=== PATIENT | male | born 1960 | race Caucasian/White ===

== ENCOUNTER 2016-10-23 08:10 | Day surgery (SDC) | payer OTHER ==
[~2016-10-23] VITALS: Ht 170.2 cm; Wt 65.9 kg
--- NOTE | 2016-10-23 07:19 | PCM.HPANE ---
Patient Data Surgeon Admitting Provider: Attending Provider:Jay Monson MD Primary Care Physician:Pat Daniels MD Other Provider:Rukhsana Montanoingham Anesthesia Reason for Visit Colon Cancer Screening Ht/WT & BMI Body Mass Index Allergies Coded Allergies: bee pollen (Verified Allergy, Severe, BREATHING PROBLEMS, 10/22/16) codeine (Verified Allergy, Unknown, SWELLING,ITCHING, 10/22/16) Uncoded Allergies: BEE VENOM (Allergy, Severe, 10/23/16) Past Anesthesia History Anesthesia History: Denies:: Anesthesia Reactions Diabetes History Hx Diabetes?: No Medications Blood Thinner: Xarelto Hypertension Medication: Yes Home Meds Incl Beta Maki: Yes Date Beta Maki Taken: Oct 23, 2016 Time Beta Maki Taken: 05:30 Reported Medications Metoprolol Succinate ER 50 Mg Tab.er.24h50 Mg PO DAILY Ref 0 10/22/16 Diltiazem ER 120 Mg Cap.er.23u659 Mg PO DAILY Ref 0 10/22/16 Aspirin 81 Mg Gcdkvk20 Mg PO DAILY Ref 0 10/22/16 Discontinued Reported Medications Rivaroxaban (Xarelto)20 Mg Uiyqmt01 Mg PO 10/22/16 History History of ENT Problems?: No Cardiovascular History: Positive for:: Atrial Fibrillation Hx of Respiratory Problem?: No Stop/Bang DEB Risk Assessment: Low Risk, <3 Yes Risk Assessment Category Category 1A: Patient has history of documented sleep apnea, and HAS NOT received any narcotic, sedative or anesthesia administration during this stay. Category 1B: Patient has history of documented sleep apnea, and HAS received any narcotic , sedative or anesthesia administration during this stay Category 2: Patient has SUSPECTED Obstructive Sleep Apnea, and HAS received any narcotic , sedative or anesthesia administration during this stay. Category 3: Patient has SUSPECTED Obstructive Sleep Apnea and HAS NOT received narcotic, sedative or anesthesia administration during this stay. Category 4: Outpatient in Procedural Areas with known sleep apnea or who screen positive for High Risk via the STOP/BANG questionnaire. Exam Exam General Appearance: Alert, Oriented X3, Cooperative, No Acute Distress HEENT/AIRWAY: MP 2, Other (poor dentition, teeth out) Lungs: Normal Air Movement Heart: Exam Unremarkable Plan Impression Patient chart reviewed, patient interviewed and anesthestic plan with risks, benefits, and alternatives discussed, and informed consent obtained. ASA Physical Status: ASA2 Mod Systemic Disease Anesthetic Plan: MAC Bene/Risks/Altern/Consents: Yes HP Complete Prior to Induction: Yes Rajendra Pa MD Oct 23, 2016 07:19
[~2016-10-23 08:10] MED LIST: ASPI-973 PO; DILT-17 PO; Lactated Ringer's 1,000 ML IV ONE; METO-272 PO; RIVA20TA PO
[2016-10-23] MEDS ORDERED: fentaNYL-PF 50 mCg/mL 2 mL Inj ONE (08:11)
[2016-10-23] MEDS ORDERED: Propofol 10,000 mCg/mL 20 mL Inj ONE (08:11)
[2016-10-23 08:30] VITALS: BP 124/82; PULSE 74; RESP 12; O2SAT 95
[2016-10-23] MEDS ORDERED: Lactated Ringer's 1,000 ML IV SCH (09:29)
[2016-10-23] MEDS ORDERED: Ondansetron 2 mg/mL 2 mL Inj IVPUSH PRN (09:30)
[2016-10-23] MEDS ORDERED: MetoCLOpramide 5 mg/mL 2 mL Inj IVPUSH PRN (09:30)
[2016-10-23 09:53] VITALS: BP 100/65; PULSE 71; RESP 14; O2SAT 97
--- NOTE | 2016-10-23 10:01 | PCM.ANEP1 ---
Post Anesthesia Phase 1 PACU Phase 1 Assessment Vital Signs see anesthesia record Vital Signs Date Time Temp Pulse Resp B/P Pulse Ox O2 Delivery O2 Flow Rate FiO2 10/23/16 08:30 36.1 74 12 124/82 95 Room Air Anesthetic Administered: MAC Level of Alertness: Awake, talking WALLACE's with Equal Strength: Yes Pain: No Nausea or Vomiting: No Oxygen Delivery: Room Air Lungs: Normal Air Movement Dermatome Level: Full Sensation Rajendra Pa MD Oct 23, 2016 10:01
[2016-10-23 10:02] VITALS: BP 87/58; PULSE 71; RESP 14; O2SAT 98
--- NOTE | 2016-10-23 10:02 | PCM.ANEP2 ---
Post Anesthesia Evaluation ASA/CMS Post Anesthesia VS in Patient's Normal Range?: Yes Resp Stable; Airway Patent?: Yes CV Function & Hydration Stable: Yes Mental Status Recovered?: Yes Pain control Satisfactory?: Yes N/V Control Satisfactory?: Yes Rajendra Pa MD Oct 23, 2016 10:02
[2016-10-23 10:13] VITALS: BP 110/81; PULSE 63; RESP 16; O2SAT 97
--- NOTE | 2016-10-23 10:37 | ENDO ---
[address] [address] ENDOSCOPY PROCEDURE PATIENT: GEOVANNA GRAFF : 1960 MR#: [id number] ADMIT: 10/23/2016 JOB ID: [id number] DATE: 10/23/2016 PRIMARY PROVIDER: Pat Daniels PROCEDURE: Colonoscopy with hot and cold snare polypectomy. INDICATIONS: A 56-year-old male who reports for colon cancer screening. EQUIPMENT: PCA[employer]In Social H 180 AL. SEDATION: Monitored anesthesia as provided by Dr. Rajendra Pa. COMPLICATIONS: None identified. BOWEL PREPARATION: Excellent. PROCEDURAL INFORMATION: After the risks and benefits were explained, written and verbal informed consent was obtained. The patient was brought into the endoscopy suite and placed into the left lateral decubitus position. Sedation was achieved as above. A digital rectal examination was accomplished. No significant pathology appreciated. The scope was introduced into the rectum and advanced under direct visualization to the cecum as identified by the appendiceal orifice and ileocecal valve. The scope was slowly withdrawn to carefully examine the mucosa for any defects or lesions. Multiple direct views were made through the dentate line for exclusion of pathology. The colon was decompressed. The scope removed from the patient who tolerated the procedure well. FINDINGS: In the rectum there was a diminutive 4 mm polyp removed with cold snare and a slightly larger 5 mm polyp removed with hot snare. No other significant pathology was appreciated throughout. ENDOSCOPIC DIAGNOSES: Benign diminutive rectal polyps. RECOMMENDATIONS: 1. Await histopathology. 2. If adenomatous features are identified, then repeat colonoscopy five years. Otherwise, repeat 10 years, sooner p.r.n.
--- NOTE | 2016-10-24 11:01 | PATH ---
SURGICAL PATHOLOGY Attending Physician:Nick Flaherty CASE STATUS: Signed Out PATIENT NAME: GEOVANNA GRAFF PID: [id number] : 1960 DATE COLLECTED:10/23/2016 16:10 SPECIMEN: Rectum, Biopsy CLINICAL HISTORY: 1). RECTAL POLYP X 2 FINAL DIAGNOSIS: Rectal Polyps: Hyperplastic polyps (2). ICD10 D12.6 GROSS DESCRIPTION: The specimen is received in one formalin filled container labeled with the patient's name, sublabeled "rectal polyps" and consists of 2 portions of tissue which aggregate to 0.3 x 0.3 x 0.2 CM. The specimen is entirely submitted in one cassette. 10/23/2016 [facility] ICD-9 CODES: CPT CODES: 1: 16932 Electronically Signed Out Patrick Jacobson MD [facility], [place] [address] Technical component performed at [facility], [address] [place] [address] Ave[address], [place], [address]
== END 2016-10-23 23:59 | disposition home or self-care (01) ==
LOC: END 08:10
PROVIDERS: ATTEND Internal Medicine Gastroenterology
DX: Z12.11 Encounter for screening for malignant neoplasm of colon (principal); D12.8 Benign neoplasm of rectum; I10 Essential (primary) hypertension; I48.91 Unspecified atrial fibrillation; F17.210 Nicotine dependence, cigarettes, uncomplicated; Z79.82 Long term (current) use of aspirin; Z79.01 Long term (current) use of anticoagulants; Z72.89 Other problems related to lifestyle
CPT/HCPCS: 45385; 88305; J2250; J3010; J7120

== ENCOUNTER 2016-12-02 18:22 | Emergency (ER) | payer OTHER ==
[~2016-12-02] VITALS: Ht 170.2 cm; Wt 65.5 kg
[~2016-12-02 18:22] MED LIST changes: -Lactated Ringer's 1,000 ML IV ONE; -RIVA20TA PO
[2016-12-02 18:31] VITALS: BP 118/85; PULSE 75; RESP 16; O2SAT 99
--- NOTE | 2016-12-02 18:49 | ED.REPORT ---
HPI-Chest Pain 40 and Over Date of Service December 02, 2016 ED Provider: Lowell Smiley MD Patient is a 56 year old male with a hx of afib who presents to the ED complaining of irregular heart beats onset today. Associated symptoms include palpitations and a HR of 150. He denies chest pain, nausea, dizziness, SOB, or any other symptoms. He reports that he goes in and out of afib but has never been cardioverted. He took a double dose of his medications this afternoon with the onset of his symptoms. He takes 81 mg aspirin daily. Nursing Notes Stated Complaint: AFIB Chief Complaint: Dysrhythmia/Cardiac Nursing Notes Reviewed: Yes Allergies: Coded Allergies: bee pollen (Verified Allergy, Severe, BREATHING PROBLEMS, 10/22/16) codeine (Verified Allergy, Unknown, SWELLING,ITCHING, 10/22/16) Uncoded Allergies: BEE VENOM (Allergy, Severe, 10/23/16) Scheduled Aspirin (Aspirin) 81 Mg Tablet 81 MG PO DAILY Diltiazem ER (Diltiazem ER) 120 Mg Cap.er.24h 120 MG PO DAILY Metoprolol Succinate ER (Metoprolol Succinate ER) 50 Mg Tab.er.24h 50 MG PO DAILY General Time Seen by MD: 18:43 Chief Complaint Other (Palpitations ) Hx Obtained From: Patient Arrived By: Walk-in Sudden in Onset?: Yes Onset Occurred: 9 - 12 hours ago Symptom Duration: Since onset Risk Factors )( CAD Risk Stratification SmokingNo Diabetes mellitus, No Hyperlipidemia, No Hypertension Risk factors reviewed )( TAD Risk Stratification No Aortic valve disease, No Hypertension, No Risk factors reviewed )( PE Risk Stratification No Previous DVT, No Previous PE Risk factors reviewed Past Medical History Past Medical History Notes: Cardio Dr. Shaver Past Medical History Reports: Atrial fibrillation Past Surgical History Reports: Appendectomy Smoking History Current Every Day Smoker Social History Alcohol Use: "Social" Other Social History: Good social support, Ambulatory Status Independent Review of Systems Review of Systems Note: +HR 150 Respiratory: Denies: Shortness of breath Cardiovascular: Reports: Palpitations, Denies: Chest pain GI: Denies: Nausea Neurologic: Denies: Dizziness Complete sys rev & neg: except as marked. Physical Exam Initial Vital Signs Vital Signs (First) Date Time Temp Pulse Resp B/P Pulse Ox O2 Delivery O2 Flow Rate FiO2 12/02/16 18:31 37.2 75 16 118/85 99 Room Air Initial VS: Reviewed Head / Eyes: Atraumatic, Normocephalic Neck: Full range of motion Skin: Warm, Dry Neurologic: Alert, Oriented, Nonfocal Psychiatric: Mood/affect normal, Behavior normal, Normal thought content General/Constitutional: Awake, Alert, Well appearing, Well developed Respiratory / Chest: Breath sounds NL, Breath sounds = bilat, No respiratory distress Cardiovascular: No murmurs Heart Rate / Rhythm: Positive: Irreg irregular rhythm Abdomen: Soft, Non-tender Lower Extremity / Pelvis / MS: No edema Interpretation & Diagnostics Lab Results Interpretation Result Diagram: 12/02/165 12/02/165 Test 12/02/16 18:55 White Blood Count 13.4th/mm3 (3.8-10.1) Red Blood Count 5.05mil/mm3 (4.40-5.80) Hemoglobin 16.4g/dL (13.8-17.2) Hematocrit 48.3% (41.0-50.0) Mean Corpuscular Volume 95.6fL (81-100) Mean Corpuscular Hemoglobin 32.5pg (27.0-35.0) Mean Corpuscular Hemoglobin Concent 34.0% (32.0-37.0) Red Cell Distribution Width 14.3% (12.3-15.4) Platelet Count 280bil/L (150-400) Neutrophils (%) (Auto) 70.0% (40-74) Lymphocytes (%) (Auto) 20.2% (14-46) Monocytes (%) (Auto) 7.5% (4-12) Eosinophils (%) (Auto) 1.3% (0-5) Basophils (%) (Auto) 0.6% (0-3) Sodium Level 143mEq/L (134-144) Potassium Level 4.4mEq/L (3.5-5.2) Chloride Level 105mEq/L (97-108) Carbon Dioxide Level 21mmol/L (18-29) Blood Urea Nitrogen 15mg/dL (6-24) Creatinine 0.78mg/dL (0.76-1.27) Estimat Glomerular Filtration Rate 109mL/min (>59) Glucose Level 100mg/dL (60-99) Calcium Level 9.4mg/dL (8.5-10.1) Magnesium Level 2.2mg/dL (1.6-2.6) Total Bilirubin 0.3mg/dL (0.0-1.2) Aspartate Amino Transf (AST/SGOT) 28U/L (0-50) Alanine Aminotransferase (ALT/SGPT) 18U/L (0-44) Alkaline Phosphatase 63U/L (25-150) Troponin T < 0.010ug/L (0.0-0.011) Total Protein 7.1g/dL (6.4-8.4) Albumin 4.1g/dL (3.4-5.0) ECG Interpretation ECG Interpretation: Afib with rate [address] abnormalities T wave inversions in V1 no prior Time: 18:51 Interpreted by: ED physician Re-Eval/Medical Decision Med Decision/Clinical Course 56-year-old male history of paroxysmal atrial fibrillation on aspirin, diltiazem presenting feeling like he has been in atrial fibrillation since yesterday. Was in atrial fibrillation with normal rate on arrival and converted to sinus rhythm while he was here. His labs are stable. He had no chest pain or shortness of breath. His troponins are negative. Patient is discharged home with plans to follow up with his keeper head this week. Return precautions given. Time of Eval: 20:18 Re-Evaluation/Progress Note: Discussed plan for discharge. Patient understands and agrees with plan. All questions addressed at this time. Counseled Regarding: Diagnosis, Lab results, Need for follow-up, When/why to return to ED Discharge & Departure Primary Impression: Atrial fibrillation Atrial fibrillation type: chronic Qualified Code: I48.2 - Chronic atrial fibrillation Additional Impression: Palpitation Disposition: Home Discharge Condition All VS Reviewed: Yes Condition: Improved Patient Instructions: Atrial Fibrillation (GEN) Additional Instructions: Thank you for entrusting us with your care. Your examination, labs, and EKG were reassuring. It does not appear that there is a dangerous cause for your atrial fibrillation at this time. Return to the emergency department if you are experiencing atrial fibrillation AND lightheadedness, chest pain, difficulty breathing, a persistent heart rate > 110, or any other new or worsening symptoms. Referrals: Pat Daniels MD (PCP) Scribe Attestation Portions of this note were transcribed by Nicholas Herrera. I, Dr. Smiley personally performed the history, physical exam and medical decision-making; I reviewed and confirmed the accuracy of the information in the transcribed note. Signed by: Nicholas Herrera 12/02/162018 copies to: Pat Daniels MD, Ben M MD December 02, 2016 18:49 NICHOLAS HERRERA December 02, 2016 18:55
[2016-12-02 19:04] LABS: BASOPHILS % (AUTO) 0.6 % (0-3); EOSINOPHILS % (AUTO) 1.3 % (0-5); MONOCYTES % (AUTO) 7.5 % (4-12); Mean Corpuscular Hemoglobin 32.5 pg (27.0-35.0); Mean Corpuscular Volume 95.6 fL (81-100); Platelet Count 280 bil/L (150-400)
[2016-12-02 19:26] LABS: TROPONIN T < 0.010 ug/L (0.0-0.011)
[2016-12-02 19:37] LABS: Magnesium 2.2 mg/dL (1.6-2.6)
[2016-12-02 21:03] VITALS: BP 115/71; PULSE 85; RESP 25; O2SAT 93
== END 2016-12-02 21:05 | disposition home or self-care (01) ==
LOC: SED 18:42
DX: I48.2 Chronic atrial fibrillation (principal); F17.200 Nicotine dependence, unspecified, uncomplicated; Z79.82 Long term (current) use of aspirin; Z88.5 Allergy status to narcotic agent

== ENCOUNTER 2016-12-03 00:03 | Emergency (ER) | payer OTHER ==
[~2016-12-03] VITALS: Ht 170.2 cm; Wt 65.5 kg
[2016-12-03 00:25] VITALS: BP 134/68; PULSE 84; RESP 21; O2SAT 97
[2016-12-03 00:48] VITALS: BP 105/84; PULSE 72; RESP 18; O2SAT 98
--- NOTE | 2016-12-03 00:57 | ED.REPORT ---
HPI-General Illness Date of Service December 03, 2016 ED Provider: Francisco Elias MD Patient is a 56 year old male who was seen earlier today in the ED due to atrial fibrillation and converted on his own so he was discharged. The patient presents again to the ED via EMS due to atrial fibrillation. Associated symptoms include nausea. He denied chest pain or shortness of breath. Per the EMS, the patient's rate was 150 but did not receive any medications prior to arrival. The patient has had 10 episodes of atrial fibrillation since March of last year. He was previously on Coumadin or Eloquis but is not sure why his doctor told him to stop taking it. Patient has never been cardioverted before. Nursing Notes Stated Complaint: ATRIAL FIBRILLATION Chief Complaint: Dysrhythmia/Cardiac Nursing Notes Reviewed: Yes Allergies: Coded Allergies: bee pollen (Verified Allergy, Severe, BREATHING PROBLEMS, 10/22/16) codeine (Verified Allergy, Unknown, SWELLING,ITCHING, 10/22/16) Uncoded Allergies: BEE VENOM (Allergy, Severe, 10/23/16) Scheduled Aspirin (Aspirin) 81 Mg Tablet 81 MG PO DAILY Diltiazem ER (Diltiazem ER) 120 Mg Cap.er.24h 120 MG PO DAILY Metoprolol Succinate ER (Metoprolol Succinate ER) 50 Mg Tab.er.24h 50 MG PO DAILY General Time Seen by MD: 00:24 Chief Complaint Other (atrial fibrillation) Hx Obtained From: Patient Arrived By: Ambulance Sudden in Onset?: Yes Onset Occurred: Just prior to arrival Symptom Duration: Intermittent Location: : Chest Associated with: Reports: Nausea, Denies: Chest pain, Shortness of breath Recent Healthcare: No recent hospitalization, Recent doctor visit Similar Sx Previous: Yes Past Medical History Past Medical History Notes: Cardio Dr. Shaver Past Medical History Reports: Atrial fibrillation Past Surgical History Reports: Appendectomy Smoking History Current Every Day Smoker Social History Alcohol Use: "Social" Other Social History: Good social support, Ambulatory Status Independent Review of Systems atrial fibrillation Full Review of Systems Respiratory: Denies: Non-productive cough, Shortness of breath Cardiovascular: Denies: Chest pain GI: Reports: Nausea Complete sys rev & neg: except as marked. Physical Exam Vital Signs Vital Signs Date Time Temp Pulse Resp B/P Pulse Ox O2 Delivery O2 Flow Rate FiO2 12/03/16 03:46 36.6 65 18 98/69 94 Room Air 12/03/16 02:19 63 18 97/63 98 Room Air 12/03/16 01:08 75 14 114/78 98 Room Air 12/03/16 00:48 72 18 105/84 98 Room Air 12/03/16 00:25 36.6 84 21 134/68 97 Room Air Initial VS: Reviewed, Vital signs abnormal General/Constitutional: Awake, Alert, No acute distress Head / Eyes: Atraumatic, Normocephalic, PERRL, EOMI Neck: Atraumatic, Supple, Full range of motion, No JVD Respiratory / Chest: Atraumatic, Breath sounds NL, Breath sounds = bilat, No respiratory distress Heart Rate / Rhythm: Positive: Irreg irregular rhythm Skin: Atraumatic, Color NL, No rash, Warm, Dry Neurologic: Oriented X3, Speech NL, No motor deficits, No sensory deficits Psychiatric: Affect NL, Mood NL Interpretation & Diagnostics Lab Results Interpretation Result Diagram: 12/03/16 0129 12/03/16 0129 Test 12/03/16 01:29 White Blood Count 11.6th/mm3 (3.8-10.1) Red Blood Count 4.91mil/mm3 (4.40-5.80) Hemoglobin 15.9g/dL (13.8-17.2) Hematocrit 46.7% (41.0-50.0) Mean Corpuscular Volume 95.1fL (81-100) Mean Corpuscular Hemoglobin 32.4pg (27.0-35.0) Mean Corpuscular Hemoglobin Concent 34.0% (32.0-37.0) Red Cell Distribution Width 14.0% (12.3-15.4) Platelet Count 251bil/L (150-400) Neutrophils (%) (Auto) 70.5% (40-74) Lymphocytes (%) (Auto) 20.1% (14-46) Monocytes (%) (Auto) 7.5% (4-12) Eosinophils (%) (Auto) 1.1% (0-5) Basophils (%) (Auto) 0.5% (0-3) Sodium Level 140mEq/L (134-144) Potassium Level 3.9mEq/L (3.5-5.2) Chloride Level 104mEq/L (97-108) Carbon Dioxide Level 19mmol/L (18-29) Blood Urea Nitrogen 13mg/dL (6-24) Creatinine 0.66mg/dL (0.76-1.27) Estimat Glomerular Filtration Rate 132mL/min (>59) Glucose Level 128mg/dL (60-99) Calcium Level 8.6mg/dL (8.5-10.1) Magnesium Level 2.1mg/dL (1.6-2.6) Total Bilirubin 0.4mg/dL (0.0-1.2) Aspartate Amino Transf (AST/SGOT) 22U/L (0-50) Alanine Aminotransferase (ALT/SGPT) 17U/L (0-44) Alkaline Phosphatase 57U/L (25-150) Troponin T 0.010ug/L (0.0-0.011) Total Protein 6.7g/dL (6.4-8.4) Albumin 3.9g/dL (3.4-5.0) Thyroid Stimulating Hormone (TSH) 1.670uIU/mL (0.450-4.500) Hold Espino Top Tube Received (Received) Lab Results Interpretation: Mild elevation white blood count, negative troponin ECG Interpretation ECG Interpretation: atrial fibrillation, rate 86 ventricular escape beat Time: 00:33 Interpreted by: ED physician Time: 03:10 Interpreted by: ED physician Normal ECG Interpretation: Normal rate (75), Normal sinus rhythm X-Ray Chest Interpretation Chest Xray Interpretation: mild hyperextension, otherwise normal View: Portable, 1 view Interpretation / Wet Read by: Wet read ED physician Re-Eval/Medical Decision Med Decision/Clinical Course Recurrent atrial fibrillation with RVR which slowed and then resolved completely here in the emergency room without specific treatment. Labs are normal. Repeat EKG after spontaneous conversion was normal. He is being referred back to Dr. Shaver for discussion about anticoagulation. He will return here if he has recurrent rapid A. fib. Source of Hx: Old records Time of Eval: 03:10 Patient Status: Condition improved Re-Evaluation/Progress Note: Discussed plan for discharge and follow up. The patient understands and agrees to the plan for discharge. All questions were addressed. Counseled Regarding: Diagnosis, Lab results, Need for follow-up, When/why to return to ED Discharge & Departure Primary Impression: Atrial fibrillation Atrial fibrillation type: paroxysmal Qualified Code: I48.0 - Paroxysmal atrial fibrillation Disposition: Home Discharge Condition All VS Reviewed: Yes Condition: Stable Patient Instructions: Atrial Fibrillation (GEN) Additional Instructions: You have intermittent atrial fibrillation. You need to contact Dr. Shaver to talk to him about what happened yesterday and today. (We will also send him a copy.) Return if you have recurrent sustained rapid heart rate, especially if there is shortness of breath or chest pain. Also, talk to Dr. Shaver about whether you need to be on a blood thinner. Referrals: Pat Daniels MD (PCP) Curly Shaver MD Attestation Portions of this note were transcribed by Nichole Roblero I, Dr. Elias personally performed the history, physical exam and medical decision-making; I reviewed and confirmed the accuracy of the information in the transcribed note. Signed by: Shanae Maravilla, 12/03/16 and 0322 copies to: Curly Shaver MD; Pat Daniels MD, Howard L MD December 03, 2016 00:57 Nabila Roblero December 03, 2016 01:03
[2016-12-03 01:08] VITALS: BP 114/78; PULSE 75; RESP 14; O2SAT 98
[2016-12-03 01:34] LABS: BASOPHILS % (AUTO) 0.5 % (0-3); EOSINOPHILS % (AUTO) 1.1 % (0-5); MONOCYTES % (AUTO) 7.5 % (4-12); Mean Corpuscular Hemoglobin 32.4 pg (27.0-35.0); Mean Corpuscular Volume 95.1 fL (81-100); NEUTROPHILS % (AUTO) 70.5 % (40-74); Platelet Count 251 bil/L (150-400)
[2016-12-03 02:01] LABS: TROPONIN T 0.01 ug/L (0.0-0.011)
[2016-12-03 02:14] LABS: Magnesium 2.1 mg/dL (1.6-2.6)
[2016-12-03 02:19] VITALS: BP 97/63; PULSE 63; RESP 18; O2SAT 98
[2016-12-03 03:46] VITALS: BP 98/69; PULSE 65; RESP 18; O2SAT 94
--- NOTE | 2016-12-03 08:27 | DRSVH ---
PROCEDURE: X-RAY CHEST ONE VIEW, PORTABLE ([id number]) INDICATIONS: rapid afib TECHNIQUE: One view of the chest was acquired. COMPARISON: None. FINDINGS: Surgical changes and devices: None. Lungs and pleura: No pleural effusions or pneumothorax. Lungs are clear. Mediastinum: Mediastinal contours appear normal. Heart size is normal. Bones and chest wall: No suspicious bony lesions. Overlying soft tissues appear unremarkable. 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 Dictated by: Medhat Lucio M.D. on 12/03/2016 at 8:24 Approved by: Medhat Lucio M.D. on 12/03/2016 at 8:25
== END 2016-12-03 03:47 | disposition home or self-care (01) ==
LOC: EDBD 00:03 → SED 00:26
DX: I48.0 Paroxysmal atrial fibrillation (principal); R11.0 Nausea; F17.200 Nicotine dependence, unspecified, uncomplicated; Z79.82 Long term (current) use of aspirin; Z88.5 Allergy status to narcotic agent

== ENCOUNTER → 2017-04-09 | Day surgery (SDC) | payer OTHER ==
[~2017-04-09] MED LIST changes: +CHOL100045 PO; +FLEC100T2 PO; -METO-272 PO; +METO-369 PO; +VERA180C4 PO
--- NOTE | 2017-04-09 07:24 | NUR ---
[facility] out patient Cardioversion scheduled. Pt felt he converted last night back into NSR. Monitor shows NSR - 12- lead ordered. Dr Shaver notified.
== END | disposition home or self-care (01) ==
LOC: SOUO 06:52
PROVIDERS: ATTEND Internal Medicine Cardiovascular Disease
DX: I48.0 Paroxysmal atrial fibrillation (principal); Z53.8 Procedure and treatment not carried out for other reasons; Z79.82 Long term (current) use of aspirin

== ENCOUNTER → 2017-04-26 | Day surgery (SDC) | payer OTHER ==
[~2017-04-26] VITALS: Ht 170.2 cm; Wt 63.6 kg
[2017-04-26] VITALS (20 sets, daily range): BP systolic 98–118; BP diastolic 68–91; PULSE 104–143; RESP 14–24; O2SAT 97–99
[~2017-04-26] MED LIST changes: +0.9% Sodium Chloride 1,000 ML IV SCH; +APIX5TAB PO; +Atropine 1 mg/10 mL (Code) Syringe ONE; +Atropine 1 mg/mL Inj IVPUSH PRN; -DILT-17 PO; +Flumazenil 0.1 mg/mL 5 mL Inj IV PRN; -METO-369 PO; +MULT-666 PO; +Methohexital 10 mg/mL 50 mL Inj IV ONE; +VERA240C3 PO; +fentaNYL-PF 50 mCg/mL 2 mL Inj ONE
--- NOTE | 2017-04-26 13:16 | NUR ---
Admit [facility] Admitted to [facility] 5 at 1300. VSS. Denies pain. Tele Afib/flutter. IV started and labs sent. See EMR for further info and assessment. Procedure and recovery reviewed and verbalizes understanding. Awaiting available procedure room.
[2017-04-26 13:25] LABS: BASOPHILS % (AUTO) 0.4 % (0-3); EOSINOPHILS % (AUTO) 1.2 % (0-5); MONOCYTES % (AUTO) 7.8 % (4-12); Mean Corpuscular Hemoglobin 32.6 pg (27.0-35.0); Mean Corpuscular Volume 95.6 fL (81-100); NEUTROPHILS % (AUTO) 71.4 % (40-74); Platelet Count 272 bil/L (150-400)
[2017-04-26 13:46] LABS: INR 0.99 ratio
[2017-04-26 13:52] LABS: Magnesium 2.1 mg/dL (1.6-2.6)
--- NOTE | 2017-04-26 15:34 | HP ---
[address] [address] HISTORY AND PHYSICAL PATIENT: GEOVANNA GRAFF : 1960 MR#: [id number] ADMIT: 04/26/2017 JOB ID: [id number] CHIEF COMPLAINT: Palpitation, AFib. PRESENT HISTORY: This 56-year-old, pleasant male who has a history of smoking and known paroxysmal AFib as well as recent atrial flutter, who is a patient of Dr. Shaver, who was recently started on flecainide. As well, developed fast palpitation with atrial flutter with fast ventricular rate. Patient showed up in our office today. Dr. Shaver is in [place]. He reviewed the EKG. The patient was in atrial flutter with fast ventricular rate. Yesterday also he was in atrial flutter with fast ventricular rate, about 141. The patient has underlying right bundle branch block as well. Dr. Shaver asked me regarding cardioversion. The patient was brought to the [facility]. At present, he is lying down. He is not having active chest pain or active shortness of breath or stroke-like symptoms or PND, orthopnea. Denies any history of previous stroke or diabetes mellitus or hypertension. He can swallow okay. No dysphagia or stomach ulcer. He is taking his medication regularly. Now duration of atrial fibrillation more than 48 hours. No fever, chills, claudication pain, or hemoptysis or cough. PAST MEDICAL HISTORY: Known paroxysmal AFib/flutter. History of smoking. PAST SURGICAL HISTORY: No significant history. FAMILY HISTORY: History of AFib. SOCIAL HISTORY: Smoked for many years. Denies any alcohol abuse. MEDICATION: 1. Verapamil 180 mg daily. 2. Flecainide 100 mg q.12. 3. Aspirin. 4. Vitamin D. REVIEW OF SYSTEMS: Ten-point review of systems was obtained and negative except as stated above. PHYSICAL EXAMINATION: Blood pressure 117/76, heart rate 120, irregularly irregular, respiratory rate 18. HEENT: No significant anemia, jaundice. Neck: No apparent JVP. Chest: No obvious crepitation or rhonchi. CVS: S1 variable, P2 not loud. No S3, S4. No significant murmur. Abdomen: No obvious pulsatile mass. Extremities: No significant pedal edema. Vascular: No evidence of critical limb ischemia. AIRPORT REFUELING HANDLER: Alert, oriented to time, place, and person. No obvious motor or sensory deficit. On telemetry, the patient has atrial flutter, AFib with fast ventricular rate. Labs are pending. ASSESSMENT/PLAN: This 56-year-old, male, who has a history of smoking, known paroxysmal AFib/flutter was brought to the [facility] for cardioversion. As the patient has CHADS 2 vascular score zero, he was on aspirin. He was not on anticoagulation. His atrial flutter/fibrillation more than 48 hours. Hence, we decided to do ARIANA cardioversion to minimize the risk of stroke. For at least four weeks after cardioversion, will recommend anticoagulation with Eliquis 5 mg twice a day. The patient was given 1st dose of Lovenox 1 mg/kg subcu. The patient will be started on Eliquis after the cardioversion. Benefits and risk of ARIANA cardioversion which include, but not limited to, risk of GI bleed, GI perforation, aspiration, asystole, stroke, , anesthesia related complications, bleeding, etc., and details discussed with the patient and his . They understood. All the questions were answered. An informed consent was obtained. Prescription of Eliquis sent to [facility]. Total time spent today about 60 minutes. I discussed the plan with Dr. Hood as well and seek his expert opinion regarding anticoagulation. He agreed with the plan. Patient had an echocardiogram in March 2016. At that time, LV ejection fraction 55% to 60% with normal right ventricular function, moderate left atrium enlargement. No significant valvular pathology.
--- NOTE | 2017-04-26 17:29 | NUR ---
Discharge Summary for 17:15 ARIANA tolerated well by patient. Fentanyl 50mcq & Versed 4mg administered during procedure, no reversal agents required. Cardioversion attempted x2 with 100j & 200j bifasic. SR achieved for 30-60 sec after each shock. Patient remains in Afib with vent response of 98-140. Medication changes discussed with patient and (Maribeth) and provided in writing. Strong emphasis placed on the importance of taking the Eliquis twice a day, preferably every 12 hours. Patient at baseline upon discharge with .
--- NOTE | 2017-04-26 17:41 | OUT PROC ---
[address] [address] PROCEDURE NOTE PATIENT: GEOVANNA GRAFF : 1960 MR#: [id number] ADMIT: 04/26/2017 JOB ID: [id number] CARDIOVERSION REPORT: DATE OF PROCEDURE: 04/26/2017 INDICATION: Paroxysmal atrial flutter. SUPERINTENDENT MAINTENA[employer]CE [employer]POR[employer]: Radha Cueva MD CONSENT: Informed consent was obtained from the patient after explaining benefits and risks, which include, but not limited to, risk of bleeding, GI perforation, anesthesia related complications, asystole, stroke, , etc. The patient verbalizes understanding. All the questions were answered. Prior to ARIANA cardioversion, electrolytes were checked which were within normal limits. The patient is not on anticoagulation as CHADS2-VASC score was zero. However patient was given Lovenox 1 mg/kg subcu prior to ARIANA cardioversion. DESCRIPTION OF PROCEDURE: The patient was brought to the [facility] in a stable condition. The patient is a patient of Dr. Shaver with known paroxysmal atrial fibrillation. Recently he developed atrial flutter. He was started on flecainide; however he remained in atrial flutter for more than [address] Shaver asked me to do a cardioversion. The patient was monitored constantly with blood pressure recording, EKG monitoring, and pulse oximetry monitoring. For sedation a total of 4 mg Versed, 50 mcg of fentanyl and 40 mg of IV Brevital was used. After adequate sedation, transesophageal echocardiogram was done as per standard protocol. Please refer to separate report in [email or web address]. There was no obvious intracardiac clot, hence I decided to proceed with cardioversion. Using a standard anterior posterior pads, after adequate sedation, patient received initially 100 joule biphasic synchronized shock. It was successful, but within 30-60 seconds the patient converted back to atrial flutter. Hence we decided to attempt a second shock. The patient received a second shock of 200 joules, biphasic synchronized shock. It was successful but within 30-60 seconds patient flipped back to atrial flutter. Procedure was aborted. Patient resumed consciousness. There was no immediate complication. CONCLUSION: Unsuccessful ARIANA cardioversion. Discussed the case with his primary machine applicator cementer, Dr. Shaver. Plan is to discontinue flecainide. Increase verapamil from 180 to 240 mg. The patient will receive first dose of Eliquis 5 mg tonight and start with 5 mg twice a day. The patient will see Dr. Shaver in the clinic and will be scheduled for EP evaluation as well. On ARIANA, there appears to be at least mild LV dysfunction with global process during tachycardia. I will recommend re-evaluating in the clinic and if blood pressure permits, consider MICHEL inhibitor as well. His recent LV function was normal. Hopefully, once he gets converted to sinus rhythm, his LV function will get better. Discussed the plan with the patient and his . They agreed and concur. They will see Dr. Shaver as an outpatient. Benefits and risks of anticoagulation discussed. His prescription sent to [facility] [place] [facility]. ABDELRAHMAN
--- NOTE | 2017-04-27 14:23 | DRSVH ---
[facility] [address] [place] [address] Echocardiogram Report Name: GEOVANNA GRAFF Date : 04/26/2017 Height: 67 in Hospital Exam Location: [facility] Weight: 140 lb Gender: Male BSA: 1.7 m2 : 1960 Age: 57 yrs Reason For Study: Atrial flutter Ordering Physician: Radha Cueva Performed By: Yonathan Sorensen Referring Physician: Curly Shaver Interpretation Summary Difficult to assess true LV EF due to tachycardia, however LV function appears to be reduced with global hypokinesis and LV EF appears to be in 40 to 45 %. No thrombus is detected in the left atrial appendage. No left atrial mass or thrombus visualized. The interatrial septum is intact with no evidence for an atrial septal defect. There is mild tricuspid valve prolapse. The patient was in atrial flutter with heart rates between 125-144 bpm during the exam. Procedure: Informed consent for Transesophageal Echocardiogram, and use of a contrast agent as needed, was obtained prior to the procedure. An intravenous line was placed. A topical anesthetic agent was used for oropharangeal anesthesia. A bite block was inserted. IV concious sedation was administered using versed and fentanyl. The transesophageal probe was passed without difficulty. A 2D transesophageal echocardiogram with spectral and color flow Doppler was performed. The usual views were obtained; basal, mid- esophageal, transgastric and aortic views. The patient's vital signs, including blood pressure, heart rate, pulse oximetry and cardiac rhythm were monitored throughout the procedure and remained stable. The patient tolerated the procedure well without evidence of orophangeal or esophageal trauma. The patient was in atrial flutter with heart rates between 125-144 bpm during the exam. There were no complications. Left Ventricle: The left ventricle is grossly normal size. There is no thrombus. Difficult to assess true LV EF due to tachycardia, however LV function appears to be reduced with global hypokinesis and LV EF appears to be in 40 to 45 %. Right Ventricle: The right ventricle grossly appears normal in size with probable normal systolic function. Atria: No thrombus is detected in the left atrial appendage. No left atrial mass or thrombus visualized. The left atrial size is normal. The interatrial septum is intact with no evidence for an atrial septal defect. Mitral Valve: The mitral valve is grossly normal. There is mild mitral regurgitation. Aortic Valve: The aortic valve is normal in structure and function. There is no aortic valve stenosis. No aortic regurgitation is present. Tricuspid Valve: There is mild tricuspid valve prolapse. There is trace tricuspid regurgitation. Pulmonic Valve: The pulmonic valve is not well seen, but is grossly normal. Reading Physician:ANUSHA
== END | disposition home or self-care (01) ==
LOC: SPI 12:29
PROVIDERS: ATTEND Internal Medicine Cardiovascular Disease
DX: I48.92 Unspecified atrial flutter (principal); I48.0 Paroxysmal atrial fibrillation; Z79.82 Long term (current) use of aspirin; F17.200 Nicotine dependence, unspecified, uncomplicated; Z79.899 Other long term (current) drug therapy; I45.10 Unspecified right bundle-branch block
CPT/HCPCS: 36415; 80048; 83735; 84443; 85025; 85610; 92960; 93005; 94799; 99152; 99153; C8925; J1650; J2250; J3010; J7030

== ENCOUNTER 2017-04-27 10:35 | Emergency (ER) | payer OTHER ==
[~2017-04-27] VITALS: Ht 170.2 cm; Wt 63.6 kg
[~2017-04-27 10:35] MED LIST changes: -0.9% Sodium Chloride 1,000 ML IV SCH; -ASPI-973 PO; -Atropine 1 mg/10 mL (Code) Syringe ONE; -Atropine 1 mg/mL Inj IVPUSH PRN; -FLEC100T2 PO; -Flumazenil 0.1 mg/mL 5 mL Inj IV PRN; -Methohexital 10 mg/mL 50 mL Inj IV ONE; -VERA180C4 PO; -fentaNYL-PF 50 mCg/mL 2 mL Inj ONE
[2017-04-27 10:37] VITALS: BP 113/83; PULSE 89; RESP 16; O2SAT 98
--- NOTE | 2017-04-27 10:51 | ED.REPORT ---
HPI-Chest Pain 40 and Over Date of Service Apr 27, 2017 ED Provider: Jeferson Antony MD The pt is a 57 y/o male who is sent to the ED by cardiology for afib/a-flutter shocked yesterday without conversion. Per the patient the HR was at 150 an hour and a half ago, and fluttered down to 40 at one point. The pt self-converted 30 minutes ago. The pt had his dose of verapamil and eloquest at 0700. He denies chest pain, dizziness, light-headedness, nausea, vomiting, swelling, or any other symptoms at this time. Nursing Notes Stated Complaint: SENT BY CARDIOLOGY Chief Complaint: Dysrhythmia/Cardiac Nursing Notes Reviewed: Yes (PeopleAdmin, S*Bios not reconciled - anticoagulated on Eliquis) Allergies: Coded Allergies: bee pollen (Verified Allergy, Severe, BREATHING PROBLEMS, 04/27/17) codeine (Verified Allergy, Unknown, SWELLING,ITCHING, 04/27/17) Uncoded Allergies: BEE VENOM (Allergy, Severe, 10/23/16) Scheduled Apixaban (Eliquis) 5 Mg Tablet 5 MG PO BID Cholecalciferol (Vitamin D3) (Vitamin D) 1,000 Unit Capsule 1,600 UNIT PO DAILY Multivitamin (Once Daily) 1 Each Tablet 1 EACH PO DAILY Verapamil SR (Verapamil SR) 240 Mg Cap24h.pel 240 MG PO DAILY General Time Seen by MD: 11:04 Chief Complaint Other (fluttering HR) Hx Obtained From: Patient Arrived By: Walk-in Sudden in Onset?: No Onset Occurred: 1 - 4 hours ago Symptom Duration: Intermittent Recent Healthcare: No recent hospitalization, Recent doctor visit Similar Sx Previous: Yes Past Medical History Past Medical History Notes: Cardio Dr. Shaver ARIANA and Cardioversion yesterday (04/26/17) heart murmur irregular heartbeat Past Medical History colonoscopy with few small colon pulps Reports: Atrial fibrillation Past Surgical History carpel tunnel tonsills Reports: Appendectomy Smoking History Current Every Day Smoker Social History Alcohol Use: "Social" Drug Use: THC Other Social History: Good social support, Ambulatory Status Independent Review of Systems Cardiovascular: Denies: Chest pain GI: Denies: Nausea, Vomiting Musculoskeletal: Denies: Extremity swelling Neurologic: Denies: Dizziness, Lightheaded Complete sys rev & neg: except as marked. Physical Exam Initial Vital Signs Vital Signs (First) Date Time Temp Pulse Resp B/P Pulse Ox O2 Delivery O2 Flow Rate FiO2 04/27/17 10:37 36.8 89 16 113/83 98 Room Air Initial VS: Reviewed Head / Eyes: Atraumatic, Normocephalic, PERRL Skin: Warm, Dry, No cyanosis Neurologic: Alert, Oriented, Nonfocal Psychiatric: Mood/affect normal, Behavior normal General/Constitutional: Awake, Alert Respiratory / Chest: Atraumatic, Breath sounds NL, Breath sounds = bilat Cardiovascular: Heart rate NL, Regular rhythm, Heart sounds NL Abdomen: Atraumatic, Soft, Non-tender Lower Extremity / Pelvis / MS: Atraumatic, Neurologic intact, Vascular intact Upper Extremity / MS: Atraumatic, Neurologic intact, Vascular intact Interpretation & Diagnostics Lab Results Interpretation Test 04/27/17 11:29 Urine Color Yellow (YELLOW) Urine Appearance Clear (CLEAR,HAZY) Urine pH 6.0 (5.0-8.0) Urine Specific [place] 1.011 (1.003-1.035) Urine Protein Negativemg/dL (NEG,TRACE) Urine Glucose (UA) Negativemg/dL (NEGATIVE) Urine Ketones Negativemg/dL (NEGATIVE) Urine Occult Blood Large (NEGATIVE) Urine Nitrite Negative (NEGATIVE) Urine Bilirubin Negative (NEGATIVE) Urine Urobilinogen Normalmg/dL (NORMAL) Urine Leukocyte Esterase Negative (NEGATIVE) Urine RBC 0-2/hpf (0-2) Urine WBC 0-5/hpf (0-5) Urine Epithelial Cells Few/hpf (NONE-MOD) Urine Crystals None seen (NONE SEEN) Urine Bacteria None/hpf (NONE-FEW) Urine Hyaline Casts None/lpf (NONE) Urine Granular Casts None seen (NONE SEEN) Urine Waxy Casts None seen (NONE SEEN) Urine Red Blood Cell Casts None seen (NONE SEEN) Urine White Blood Cell Casts None seen (NONE SEEN) Urine Mucus None seen (None Seen) Urine Trichomonas None seen (NONE SEEN) Urine Yeast None (NONE SEEN) Urinalysis Comment None Urine Culture Reflexed Not indicated Lab Results Interpretation: Urinalysis negative hematuria ECG Interpretation ECG Interpretation: rate 70 incomplete right bundle branch block unchanged from apr 09. Time: 10:53 Interpreted by: ED physician Re-Eval/Medical Decision Med Decision/Clinical Course This is a pleasant 57-year-old male set problems with paroxysmal atrial fibrillation/flutter, who underwent a ARIANA yesterday and cardioversion 2 with recurrence of the dysrhythmia. At that point his flecainide was discontinued, as of verapamil was increased to 240 mg, first dose this morning. This morning the patient woke up and had palpitations, had a heart rate of 150 and call the business law instructor is referred in for plan for an esmolol drip and admission. Patient was also started on Eliquis The patient's pulling in his symptoms resolved. Triaged heart rates normal, and EKG demonstrates a normal sinus rhythm with a successful spontaneous cardioversion. The patient noted that he briefly thought he had slightly dark urine last night , rechecked it seem normal and he just got started on Eliquis and was wondering if this might be blood. In the department he has a normal physical exam. He has no overt findings of heart failure on clinical exam. Urinalysis was normal, no evidence of hematuria. Case was rediscussed with cardiology Dr. Rubin was re-contacted (he had called in to alertn us of the patient's arrival in the first place) and he had formed the patient's ARIANA cardioversion and management yesterday and knew the patient. Given resolution of symptoms, the patient does not require beta brigido drip or admission. Plan is discharge with him to continue his new increased dose of verapamil 240 mg a day, the plan to continue the discontinuation of the flecainide, continuation of the Elaquis, and up with the cardiology office on Saturday. Return precautions reviewed. Patient's discharge condition Source of Hx: Old records Consultation : Referral / Consult Name: Radha Cueva MD Call Returned at: 11:16 Electrical Continuity Inspector: Agrees with eval Note: Dr. Cueva agrees with the plan of discharge. Differential Diagnosis: Positive: Dysrhythmia, Negative: Acute coronary syndrome, Acute myocardial infarct, Gun shot wound chest, Pneumonia, Pneumothorax, Pulmonary edema, Pulmonary embolism, Rib fracture Counseled Regarding: Diagnosis, Lab results, Need for follow-up, When/why to return to ED Discharge & Departure Departure Notes Spontaneous conversion Primary Impression: Atrial fibrillation Atrial fibrillation type: unspecified Qualified Code: I48.91 - Unspecified atrial fibrillation Additional Impression: Anticoagulated by anticoagulation treatment Disposition: Home Discharge Condition All VS Reviewed: Yes Condition: Stable Additional Instructions: 1. Your heart rate is back into a normal sinus rhythm, the atrial fibrillation/ flutter has cardioverted on its own. 2. Your urine test was normal-there was no blood in your urine. 3. Continue the Eliquis. 4. Continue the new dose of verapamil 240 mg daily. 5. Call the cardiology office again on Saturday to recheck in. 6. Return again if new or worsening symptoms Referrals: Pat Daniels MD (PCP) Scribe Attestation Portions of this note were transcribed by Harsha Hernadez and Zuri Samuel. I , Dr. Jeferson Antony personally performed the history, physical exam and medical decision-making; I reviewed and confirmed the accuracy of the information in the transcribed note. Signed by: Harsha Hernadez and Shanae Cardoza, 04/27/17. copies to: Pat Daniels MD, Matthew F MD Apr 27, 2017 10:51 Harsha Hernadez Apr 27, 2017 11:16
[2017-04-27 11:06] VITALS: BP 107/78; PULSE 77; RESP 15; O2SAT 99
[2017-04-27 12:10] LABS: APPEARANCE,URINE CLEAR (CLEAR,HAZY); COLOR,URINE YELLOW (YELLOW); OCCULT BLOOD,URINE LARGE (NEGATIVE); UROBILINOGEN,URINE NORMAL (NORMAL)
[2017-04-27 12:28] VITALS: BP 95/64; PULSE 77; RESP 14; O2SAT 97
[2017-04-27 12:39] VITALS: BP 95/64; PULSE 77; RESP 14; O2SAT 97
== END 2017-04-27 12:40 | disposition home or self-care (01) ==
LOC: SED 10:35
DX: I48.91 Unspecified atrial fibrillation (principal); Z79.01 Long term (current) use of anticoagulants; F17.200 Nicotine dependence, unspecified, uncomplicated; Z88.5 Allergy status to narcotic agent; Z91.030 Bee allergy status